=== PATIENT | female | born 1980 | race Caucasian/White ===

== ENCOUNTER 2017-09-20 12:33 | Inpatient (IN) | payer OTHER ==
[2017-09-20 13:53] LABS: ADD MAN DIFF? NO
[2017-09-20 13:54] LABS: BASOPHILS % 0.2 % (0.0-2.0); HEMATOCRIT 28.5 % (37.0-47.0); HEMOGLOBIN 9.4 g/dl (12.0-16.0); LYMPHOCYTES # 1.4 10^3/ul (0.8-2.9); LYMPHOCYTES % 6.3 % (15.0-51.0); MEAN CORPUSCULAR HEMOGLOBIN 27.6 pg (29.0-33.0); MEAN CORPUSCULAR VOLUME 83.8 fl (82.0-101.0); MEAN PLATELET VOLUME 11.6 fl (7.4-10.4); MONOCYTE # 0.9 10^3/ul (0.3-0.9); MONOCYTES % 3.8 % (0.0-11.0); PLATELET COUNT 350 10^3/UL (140-415); RED CELL DISTRIBUTION WIDTH 12.7 % (11.5-14.5)
[2017-09-20 13:54] LABS: WHITE BLOOD COUNT 22.4 10^3/ul (4.8-10.8)
[2017-09-20] MEDS ORDERED: ONDANSETRON 4 MG INJ IV (14:00)
[2017-09-20] MEDS ORDERED: ACETAMINOPHEN 325 MG TAB PO (14:00)
[2017-09-20 14:09] LABS: INR 0.82; PROTIME 11.4 Sec (11.9-14.9); PT RATIO 0.9
[2017-09-20 14:10] LABS: PARTIAL THROMBOPLASTIN TIME 25.6 Sec (25.0-35.0)
[2017-09-20 14:12] LABS: ALANINE AMINOTRANSFERASE 32 IU/L (13-69); ALBUMIN 2.9 g/dl (3.3-4.9); ALKALINE PHOSPHATASE 135 IU/L (42-121); ANION GAP 15 (8-16); ASPARTATE AMINO TRANSFERASE 15 IU/L (15-46); BILIRUBIN,INDIRECT 0.2 mg/dl (0-1.1); BILIRUBIN,TOTAL 0.2 mg/dl (0.2-1.3); BLOOD UREA NITROGEN 21 mg/dl (7-20); CALCIUM 7.6 mg/dl (8.4-10.2); CARBON DIOXIDE 24 mmol/L (21-31); CHLORIDE 94 mmol/L (97-110); CREATININE 1.43 mg/dl (0.44-1.00); POTASSIUM 4.1 mmol/L (3.5-5.1); SODIUM 129 mmol/L (135-144); TOTAL PROTEIN 6.1 g/dl (6.1-8.1)
[2017-09-20 14:16] LABS: GLUCOSE 537 mg/dl (70-220)
[2017-09-20] MEDS: SOD CHLORIDE 0.9% 1,000 ML IV (14:21)
[2017-09-20 14:23] LABS: TROPONIN-I 0.024 ng/ml (0.00-0.12)
[2017-09-20 14:30] LABS: LACTIC ACID 1.1 mmol/L (0.5-2.0)
[2017-09-20] MEDS ORDERED: VANCOMYCIN IV PER PHARMACY XX (14:30)
[2017-09-20] MEDS ORDERED: DOCUSATE SODIUM 100 MG CAP PO (14:30)
[2017-09-20] MEDS ORDERED: NACL 0.9% 3 ML SYG IV (14:30)
[2017-09-20] MEDS: SODIUM CHLORIDE 0.9% 1L BAG IV* (14:32)
[2017-09-20] MEDS: ACETAMINOPHEN 325 MG TAB PO (14:33)
[2017-09-20] MEDS: VANCOMYCIN 1 GM (PMX) 250 ML IVPB (14:33)
[2017-09-20 14:37] LABS: ADD UMIC YES; UR ASCORBIC ACID NEGATIVE (NEGATIVE); UR BILIRUBIN (Dip) NEGATIVE (NEGATIVE); UR BLOOD (Dip) 1+ mg/dL (NEGATIVE); UR CLARITY SLIGHTLY CLOUDY (CLEAR); UR COLOR YELLOW (YELLOW); UR GLUCOSE (Dip) 3+ mg/dL (NEGATIVE); UR KETONES (Dip) TRACE mg/dL (NEGATIVE); UR LEUKOCYTE ESTERASE (Dip) NEGATIVE Leu/ul (NEGATIVE); UR NITRITE (Dip) NEGATIVE (NEGATIVE); UR RBC 1 /HPF (0-5); UR SPECIFIC GRAVITY (Dip) 1.014 (1.003-1.030); UR SQUAMOUS EPITHELIAL CELL FEW /HPF (FEW); UR TOTAL PROTEIN (Dip) 3+ mg/dl (NEGATIVE); UR UROBILINOGEN (Dip) NEGATIVE (NEGATIVE); UR WBC 2 /HPF (0-5)
[2017-09-20] MEDS ORDERED: SOD CHLORIDE 0.9% 1,000 ML IV (14:40)
[2017-09-20] MEDS: AZTREONAM 1 GM/NS (PMX) 50 ML IVPB (14:54)
[2017-09-20] MEDS ORDERED: DEXTROSE 50% 50 ML SYRINGE IV ×2 (15:00)
[2017-09-20] MEDS ORDERED: ACCU-CHEK XX (15:00)
[2017-09-20] MEDS ORDERED: GLUCOSE GEL 15 GRAM TUBE PO (15:00)
[2017-09-20] MEDS ORDERED: GLUCAGON 1 MG INJ IM (15:00)
[2017-09-20] MEDS ORDERED: GLUCOSE GEL 15 GRAM TUBE BUCCAL (15:00)
[2017-09-20] MEDS ORDERED: INSULIN HUMAN REGULAR 100 UNIT in SOD CHLORIDE 0.9% 99 ML IV (15:00)
[2017-09-20] MEDS: morphine 4 MG/ML VIAL IV (15:29)
[2017-09-20] MEDS: ONDANSETRON 4 MG INJ IV (15:29)
[2017-09-20] MEDS: INSULIN LISPRO 100 UNIT/ML VIAL SC (15:34)
[2017-09-20] MEDS ORDERED: LACTATED RINGER'S 1,000 ML IV (15:40)
[2017-09-20 15:53] LABS: TOTAL IRON BINDING CAPACITY 189 ug/dl (241-421)
[2017-09-20 15:55] LABS: IRON < 10 ug/dl (35-150)
[2017-09-20] MEDS: NICOTINE (7 MG/24 HR) PATCH TRANSDERM (16:00)
[2017-09-20] MEDS ORDERED: LEVOFLOXACIN 500 MG TAB PO (16:00)
[2017-09-20] MEDS ORDERED: NS + KCL 20 MEQ 1,000 ML IV (16:40)
[2017-09-20 17:09] LABS: FERRITIN 28.9 ng/ml (6.2-137.0)
[2017-09-20 17:45] LABS: LACTIC ACID 2.6 mmol/L (0.5-2.0)
[2017-09-20] MEDS: INSULIN ASPART [NOVOLOG] 3 ML PEN SC ×2 (17:58→20:52)
[2017-09-20] MEDS: morphine 2 MG INJ IV (18:17)
[2017-09-20] MEDS: DIPHENHYDRAMINE 50 MG INJ IV (18:17)
[2017-09-20] MEDS: LEVOFLOXACIN 500MG/D5W (PMX) 100 ML IVPB (18:17)
[2017-09-20 19:52] LABS: LACTIC ACID 1.9 mmol/L (0.5-2.0)
[2017-09-20] MEDS: FAMOTIDINE 20 MG TAB PO (20:17)
[2017-09-20] MEDS: CHLORHEXIDINE GLUCONATE 15 ML UD CUP MT (20:17)
[2017-09-20] MEDS: GABAPENTIN 300 MG CAP PO (20:17)
[2017-09-20] MEDS: INSULIN GLARGINE [LANtus] 3 ML PEN SC (20:19)
[2017-09-20] MEDS: morphine (ER) 15 MG TAB PO ×2 (20:53→23:42)
[2017-09-20] MEDS ORDERED: CLINDAMYCIN 900 MG/D5W (PMX) 50 ML IVPB (22:00)
[2017-09-21] MEDS: ACCU-CHEK XX (02:00)
[2017-09-21 03:21] LABS: ADD UMIC YES; UR AMORPHOUS CRYSTAL FEW /HPF (NONE SEEN); UR ASCORBIC ACID NEGATIVE (NEGATIVE); UR BACTERIA FEW /HPF (NONE SEEN); UR BILIRUBIN (Dip) NEGATIVE (NEGATIVE); UR BLOOD (Dip) 1+ mg/dL (NEGATIVE); UR CLARITY CLEAR (CLEAR); UR COLOR STRAW (YELLOW); UR GLUCOSE (Dip) 3+ mg/dL (NEGATIVE); UR KETONES (Dip) NEGATIVE (NEGATIVE); UR LEUKOCYTE ESTERASE (Dip) NEGATIVE Leu/ul (NEGATIVE); UR NITRITE (Dip) NEGATIVE (NEGATIVE); UR RBC 10 /HPF (0-5); UR SPECIFIC GRAVITY (Dip) 1.009 (1.003-1.030); UR SQUAMOUS EPITHELIAL CELL FEW /HPF (FEW); UR TOTAL PROTEIN (Dip) 3+ mg/dl (NEGATIVE); UR UROBILINOGEN (Dip) NEGATIVE (NEGATIVE); UR WBC 2 /HPF (0-5)
[2017-09-21] MEDS: SOD CHLORIDE 0.9% 1,000 ML IV ×2 (04:45→10:13)
[2017-09-21 06:14] LABS: ADD MAN DIFF? NO
[2017-09-21 06:19] LABS: BASOPHILS % 0.2 % (0.0-2.0); EOSINOPHILS # 0.2 10^3/ul (0.0-0.5); EOSINOPHILS % 1.1 % (0.0-7.0); HEMATOCRIT 24.7 % (37.0-47.0); HEMOGLOBIN 8.2 g/dl (12.0-16.0); LYMPHOCYTES # 2.5 10^3/ul (0.8-2.9); LYMPHOCYTES % 17.1 % (15.0-51.0); MEAN CORPUSCULAR HEMOGLOBIN 28.1 pg (29.0-33.0); MEAN CORPUSCULAR HGB CONC 33.2 g/dl (32.0-37.0); MEAN CORPUSCULAR VOLUME 84.6 fl (82.0-101.0); MEAN PLATELET VOLUME 11.2 fl (7.4-10.4); MONOCYTE # 0.8 10^3/ul (0.3-0.9); MONOCYTES % 5.5 % (0.0-11.0); NEUTROPHIL # 11.3 10^3/ul (1.6-7.5); NEUTROPHILS % 75.8 % (39.0-77.0); PLATELET COUNT 326 10^3/UL (140-415); RED BLOOD COUNT 2.92 10^6/ul (4.20-5.40); RED CELL DISTRIBUTION WIDTH 12.9 % (11.5-14.5)
[2017-09-21 06:19] LABS: WHITE BLOOD COUNT 14.8 10^3/ul (4.8-10.8)
[2017-09-21 06:47] LABS: ALBUMIN 2.3 g/dl (3.3-4.9); ANION GAP 8 (8-16); BLOOD UREA NITROGEN 20 mg/dl (7-20); CALCIUM 7.8 mg/dl (8.4-10.2); CARBON DIOXIDE 25 mmol/L (21-31); CHLORIDE 104 mmol/L (97-110); CREATININE 1.47 mg/dl (0.44-1.00); GLUCOSE 194 mg/dl (70-220); MAGNESIUM 1.9 mg/dl (1.7-2.5); PHOSPHORUS 4.5 mg/dl (2.5-4.9); POTASSIUM 3.6 mmol/L (3.5-5.1); SODIUM 133 mmol/L (135-144)
[2017-09-21] MEDS: CHLORHEXIDINE GLUCONATE 15 ML UD CUP MT ×2 (08:05→21:03)
[2017-09-21] MEDS: NICOTINE (7 MG/24 HR) PATCH TRANSDERM (08:06)
[2017-09-21] MEDS: CITALOPRAM 20 MG TAB PO (08:06)
[2017-09-21] MEDS: GABAPENTIN 300 MG CAP PO ×2 (08:06→21:03)
[2017-09-21] MEDS: FAMOTIDINE 20 MG TAB PO ×2 (08:06→21:03)
[2017-09-21] MEDS: INSULIN ASPART [NOVOLOG] 3 ML PEN SC ×5 (08:10→21:19)
[2017-09-21] MEDS: morphine (ER) 15 MG TAB PO (08:13)
[2017-09-21] MEDS: morphine 2 MG INJ IV ×3 (09:00→21:38)
[2017-09-21] MEDS: POTASSIUM CHLORIDE (SR) 20 MEQ TAB PO (10:12)
[2017-09-21] MEDS ORDERED: FUROSEMIDE 20 MG TAB PO (11:00)
[2017-09-21] MEDS: VANCOMYCIN 750 MG in DEXTROSE 5% 150 ML IVPB (15:59)
[2017-09-21] MEDS: DIPHENHYDRAMINE 50 MG INJ IV (16:04)
[2017-09-21] MEDS: LEVOFLOXACIN 500MG/D5W (PMX) 100 ML IVPB (18:21)
[2017-09-21] MEDS: INSULIN GLARGINE [LANtus] 3 ML PEN SC (21:20)
[2017-09-22] MEDS: ACCU-CHEK XX (01:40)
[2017-09-22] MEDS: SOD CHLORIDE 0.9% 1,000 ML IV ×4 (03:20→22:00)
[2017-09-22 06:10] LABS: ADD MAN DIFF? NO
[2017-09-22 06:14] LABS: BASOPHILS % 0.1 % (0.0-2.0); EOSINOPHILS # 0.2 10^3/ul (0.0-0.5); EOSINOPHILS % 1.2 % (0.0-7.0); HEMATOCRIT 25.1 % (37.0-47.0); HEMOGLOBIN 7.7 g/dl (12.0-16.0); LYMPHOCYTES # 2.1 10^3/ul (0.8-2.9); LYMPHOCYTES % 15.7 % (15.0-51.0); MEAN CORPUSCULAR HEMOGLOBIN 27.5 pg (29.0-33.0); MEAN CORPUSCULAR HGB CONC 30.7 g/dl (32.0-37.0); MEAN CORPUSCULAR VOLUME 89.6 fl (82.0-101.0); MEAN PLATELET VOLUME 11.3 fl (7.4-10.4); MONOCYTE # 0.7 10^3/ul (0.3-0.9); MONOCYTES % 5.3 % (0.0-11.0); NEUTROPHIL # 10.5 10^3/ul (1.6-7.5); NEUTROPHILS % 77.3 % (39.0-77.0); PLATELET COUNT 334 10^3/UL (140-415); RED CELL DISTRIBUTION WIDTH 13.4 % (11.5-14.5)
[2017-09-22 06:14] LABS: WHITE BLOOD COUNT 13.6 10^3/ul (4.8-10.8)
[2017-09-22 07:01] LABS: ALBUMIN 2.2 g/dl (3.3-4.9); ANION GAP 11 (8-16); BLOOD UREA NITROGEN 17 mg/dl (7-20); CALCIUM 7.3 mg/dl (8.4-10.2); CARBON DIOXIDE 24 mmol/L (21-31); CHLORIDE 109 mmol/L (97-110); CREATININE 1.67 mg/dl (0.44-1.00); GLUCOSE 235 mg/dl (70-220); MAGNESIUM 1.9 mg/dl (1.7-2.5); PHOSPHORUS 4.3 mg/dl (2.5-4.9); SODIUM 138 mmol/L (135-144)
[2017-09-22 07:11] LABS: POTASSIUM 5.6 mmol/L (3.5-5.1)
[2017-09-22] MEDS: GABAPENTIN 300 MG CAP PO ×2 (09:05→20:54)
[2017-09-22] MEDS: CITALOPRAM 20 MG TAB PO (09:05)
[2017-09-22] MEDS: FAMOTIDINE 20 MG TAB PO ×2 (09:05→20:54)
[2017-09-22] MEDS: CHLORHEXIDINE GLUCONATE 15 ML UD CUP MT ×2 (09:05→20:54)
[2017-09-22] MEDS: NICOTINE (7 MG/24 HR) PATCH TRANSDERM (09:06)
[2017-09-22] MEDS: INSULIN ASPART [NOVOLOG] 3 ML PEN SC ×6 (09:07→20:53)
[2017-09-22] MEDS: morphine 2 MG INJ IV ×4 (09:18→16:57)
[2017-09-22 10:57] LABS: HAAIG REFLEX REFLEX FILED
[2017-09-22 11:27] LABS: ALBUMIN 2.4 g/dl (3.3-4.9); ANION GAP 11 (8-16); BLOOD UREA NITROGEN 17 mg/dl (7-20); CALCIUM 7.7 mg/dl (8.4-10.2); CARBON DIOXIDE 21 mmol/L (21-31); CHLORIDE 107 mmol/L (97-110); CREATININE 1.63 mg/dl (0.44-1.00); GLUCOSE 290 mg/dl (70-220); PHOSPHORUS 4.4 mg/dl (2.5-4.9); POTASSIUM 4.8 mmol/L (3.5-5.1); SODIUM 134 mmol/L (135-144)
[2017-09-22 11:55] LABS: HEPATITIS B SURFACE ANTIGEN NEGATIVE (NEGATIVE)
[2017-09-22] MEDS ORDERED: VITAMIN A & D 5 GM OINT PACKET TOP (12:00)
[2017-09-22 12:13] LABS: HEPATITIS B CORE ANTIBODY NEGATIVE (NEGATIVE); HEPATITIS C VIRAL ANTIBODY NEGATIVE (NEGATIVE)
[2017-09-22 13:16] LABS: ADD UMIC YES; UR AMORPHOUS CRYSTAL FEW /HPF (NONE SEEN); UR ASCORBIC ACID NEGATIVE (NEGATIVE); UR BACTERIA FEW /HPF (NONE SEEN); UR BILIRUBIN (Dip) NEGATIVE (NEGATIVE); UR BLOOD (Dip) 1+ mg/dL (NEGATIVE); UR CLARITY CLOUDY (CLEAR); UR COLOR YELLOW (YELLOW); UR GLUCOSE (Dip) 3+ mg/dL (NEGATIVE); UR KETONES (Dip) NEGATIVE (NEGATIVE); UR LEUKOCYTE ESTERASE (Dip) NEGATIVE Leu/ul (NEGATIVE); UR MUCUS FEW /HPF (NONE SEEN); UR NITRITE (Dip) NEGATIVE (NEGATIVE); UR RBC 0 /HPF (0-5); UR SPECIFIC GRAVITY (Dip) 1.012 (1.003-1.030); UR SQUAMOUS EPITHELIAL CELL FEW /HPF (FEW); UR TOTAL PROTEIN (Dip) 3+ mg/dl (NEGATIVE); UR UROBILINOGEN (Dip) NEGATIVE (NEGATIVE); UR WBC 7 /HPF (0-5)
[2017-09-22 14:44] LABS: SODIUM,URINE RANDOM 32 mmol/L (30-90)
[2017-09-22 14:44] LABS: CREATININE,URINE RANDOM 79.57 mg/dl (20-320)
[2017-09-22] MEDS: VANCOMYCIN 750 MG in DEXTROSE 5% 150 ML IVPB (16:28)
[2017-09-22] MEDS: LEVOFLOXACIN 250MG/D5W (PMX) 50 ML IVPB (19:39)
[2017-09-22] MEDS: INSULIN GLARGINE [LANtus] 3 ML PEN SC (20:54)
[2017-09-22] MEDS: LORAZEPAM 2 MG INJ IV (21:01)
[2017-09-23] MEDS: morphine 2 MG INJ IV ×4 (01:21→20:31)
[2017-09-23] MEDS: ACCU-CHEK XX (01:23)
[2017-09-23 06:21] LABS: ADD MAN DIFF? NO
[2017-09-23 06:29] LABS: WHITE BLOOD COUNT 10.1 10^3/ul (4.8-10.8)
[2017-09-23 06:29] LABS: BASOPHILS % 0.1 % (0.0-2.0); EOSINOPHILS # 0.1 10^3/ul (0.0-0.5); EOSINOPHILS % 1.4 % (0.0-7.0); HEMATOCRIT 24.5 % (37.0-47.0); HEMOGLOBIN 7.7 g/dl (12.0-16.0); LYMPHOCYTES # 2.5 10^3/ul (0.8-2.9); LYMPHOCYTES % 24.7 % (15.0-51.0); MEAN CORPUSCULAR HEMOGLOBIN 27.8 pg (29.0-33.0); MEAN CORPUSCULAR HGB CONC 31.4 g/dl (32.0-37.0); MEAN CORPUSCULAR VOLUME 88.4 fl (82.0-101.0); MEAN PLATELET VOLUME 10.6 fl (7.4-10.4); MONOCYTE # 0.6 10^3/ul (0.3-0.9); MONOCYTES % 6.2 % (0.0-11.0); NEUTROPHIL # 6.8 10^3/ul (1.6-7.5); NEUTROPHILS % 67.2 % (39.0-77.0); PLATELET COUNT 336 10^3/UL (140-415); RED BLOOD COUNT 2.77 10^6/ul (4.20-5.40); RED CELL DISTRIBUTION WIDTH 13.2 % (11.5-14.5)
[2017-09-23] MEDS ORDERED: morphine (1 MG/ML) 10ML SYRINGE IV ×3 (07:00)
[2017-09-23] MEDS ORDERED: LABETALOL HCL 20MG INJ IV (07:00)
[2017-09-23] MEDS ORDERED: MEPERIDINE 25 MG INJ IV (07:00)
[2017-09-23] MEDS ORDERED: OXYCODONE/ACETAMINOPHEN (5/325) TAB PO ×2 (07:00)
[2017-09-23] MEDS ORDERED: EPHEDrine SULFATE 50 MG/5 ML SYG IV (07:00)
[2017-09-23] MEDS ORDERED: MIDAZOLAM 1 MG/ML 2 ML INJ IV (07:00)
[2017-09-23] MEDS ORDERED: HYDROmorphONE (0.2 MG/ML) 10ML SYG IV ×3 (07:00)
[2017-09-23] MEDS ORDERED: ATROPINE 1 MG/10 ML SYRINGE IV (07:00)
[2017-09-23] MEDS ORDERED: ONDANSETRON 4 MG INJ IV (07:00)
[2017-09-23] MEDS ORDERED: FENTAnyl 50 MCG/ML VIAL IV (07:00)
[2017-09-23] MEDS ORDERED: hydrALAzine 20 MG INJ IV (07:00)
[2017-09-23] MEDS ORDERED: DIPHENHYDRAMINE 50 MG INJ IV (07:00)
[2017-09-23 07:01] LABS: ALBUMIN 2.2 g/dl (3.3-4.9); ANION GAP 8 (8-16); BLOOD UREA NITROGEN 19 mg/dl (7-20); CALCIUM 7.6 mg/dl (8.4-10.2); CARBON DIOXIDE 24 mmol/L (21-31); CHLORIDE 108 mmol/L (97-110); CREATININE 1.46 mg/dl (0.44-1.00); GLUCOSE 242 mg/dl (70-220); MAGNESIUM 1.8 mg/dl (1.7-2.5); PHOSPHORUS 4.3 mg/dl (2.5-4.9); POTASSIUM 5.1 mmol/L (3.5-5.1); SODIUM 135 mmol/L (135-144)
[2017-09-23] MEDS: INSULIN ASPART [NOVOLOG] 3 ML PEN SC ×9 (08:06→20:33)
[2017-09-23] MEDS: LORAZEPAM 2 MG INJ IV ×2 (08:46→21:06)
[2017-09-23] MEDS: GABAPENTIN 300 MG CAP PO ×2 (09:00→20:18)
[2017-09-23] MEDS: CHLORHEXIDINE GLUCONATE 15 ML UD CUP MT ×2 (09:00→20:17)
[2017-09-23] MEDS: FAMOTIDINE 20 MG TAB PO ×2 (09:00→20:18)
[2017-09-23] MEDS: CITALOPRAM 20 MG TAB PO (09:00)
[2017-09-23] MEDS: NICOTINE (7 MG/24 HR) PATCH TRANSDERM (09:12)
[2017-09-23] MEDS ORDERED: LIDOCAINE 2% (SDV) 5 ML INJ (10:21)
[2017-09-23] MEDS ORDERED: NEOSTIGMINE 3 MG/3 ML SYRINGE (10:21)
[2017-09-23] MEDS ORDERED: MIDAZOLAM 1 MG/ML 2 ML INJ (10:21)
[2017-09-23] MEDS ORDERED: FENTAnyl 50 MCG/ML VIAL (10:21)
[2017-09-23] MEDS ORDERED: GLYCOPYRROLATE 1 MG INJ (10:21)
[2017-09-23] MEDS ORDERED: DEXAMETHASONE 4 MG/ML 1 ML INJ (10:21)
[2017-09-23] MEDS ORDERED: ROCURONIUM 50 MG INJ (10:21)
[2017-09-23] MEDS ORDERED: PROPOFOL 20 ML (10:21)
[2017-09-23] MEDS ORDERED: ONDANSETRON 4 MG INJ (10:22)
[2017-09-23] MEDS: DEXTROSE 50% 50 ML SYRINGE IV (10:36)
[2017-09-23] MEDS ORDERED: DEXTROSE 50% 50 ML SYRINGE IV (11:00)
[2017-09-23] MEDS: SOD CHLORIDE 0.9% 1,000 ML IV (11:01)
[2017-09-23] MEDS: LIDOCAINE 2% (MDV) 20 ML INJ (11:25)
[2017-09-23] MEDS: BACITRACIN 50000 UNITS INJ (12:30)
[2017-09-23 15:22] LABS: VANCOMYCIN,TROUGH 14.1 ug/ml (10.0-20.0)
[2017-09-23 16:31] LABS: CREATININE, RANDOM URINE 97 mg/dL (20-320); MICROALBUMIN 189.2 mg/dL; MICROALBUMIN/CREATININE RATIO 1951 (<30)
[2017-09-23] MEDS: VANCOMYCIN 750 MG in DEXTROSE 5% 150 ML IVPB (16:34)
[2017-09-23] MEDS: CEFEPIME 1GM/50 ML (PMX) 50 ML IVPB (18:42)
[2017-09-23] MEDS: INSULIN GLARGINE [LANtus] 3 ML PEN SC (20:24)
[2017-09-24] MEDS: CEFEPIME 1GM/50 ML (PMX) 50 ML IVPB ×3 (00:42→20:44)
[2017-09-24] MEDS: SOD CHLORIDE 0.9% 1,000 ML IV (00:42)
[2017-09-24] MEDS: ACCU-CHEK XX (02:13)
[2017-09-24] MEDS: morphine 2 MG INJ IV ×5 (02:27→21:36)
[2017-09-24 06:14] LABS: ADD MAN DIFF? NO
[2017-09-24 06:22] LABS: BASOPHILS % 0.2 % (0.0-2.0); EOSINOPHILS % 0.2 % (0.0-7.0); HEMATOCRIT 26.5 % (37.0-47.0); HEMOGLOBIN 8.3 g/dl (12.0-16.0); LYMPHOCYTES # 1.8 10^3/ul (0.8-2.9); LYMPHOCYTES % 14.5 % (15.0-51.0); MEAN CORPUSCULAR HEMOGLOBIN 27.1 pg (29.0-33.0); MEAN CORPUSCULAR HGB CONC 31.3 g/dl (32.0-37.0); MEAN CORPUSCULAR VOLUME 86.6 fl (82.0-101.0); MEAN PLATELET VOLUME 10.3 fl (7.4-10.4); MONOCYTE # 0.6 10^3/ul (0.3-0.9); NEUTROPHIL # 10.1 10^3/ul (1.6-7.5); NEUTROPHILS % 79.5 % (39.0-77.0); PLATELET COUNT 413 10^3/UL (140-415); RED BLOOD COUNT 3.06 10^6/ul (4.20-5.40)
[2017-09-24 06:22] LABS: WHITE BLOOD COUNT 12.7 10^3/ul (4.8-10.8)
[2017-09-24 06:58] LABS: ANION GAP 11 (8-16); BLOOD UREA NITROGEN 22 mg/dl (7-20); CALCIUM 8.2 mg/dl (8.4-10.2); CARBON DIOXIDE 22 mmol/L (21-31); CHLORIDE 104 mmol/L (97-110); CREATININE 1.24 mg/dl (0.44-1.00); MAGNESIUM 1.8 mg/dl (1.7-2.5); POTASSIUM 5.1 mmol/L (3.5-5.1); SODIUM 132 mmol/L (135-144)
[2017-09-24 07:09] LABS: GLUCOSE 404 mg/dl (70-220)
[2017-09-24] MEDS: INSULIN ASPART [NOVOLOG] 3 ML PEN SC ×8 (07:54→20:53)
[2017-09-24] MEDS: CITALOPRAM 20 MG TAB PO (08:23)
[2017-09-24] MEDS: FAMOTIDINE 20 MG TAB PO ×2 (08:23→20:45)
[2017-09-24] MEDS: MAGNESIUM HYDROXIDE 30ML CUP PO (08:23)
[2017-09-24] MEDS: GABAPENTIN 300 MG CAP PO ×2 (08:23→20:46)
[2017-09-24] MEDS: CHLORHEXIDINE GLUCONATE 15 ML UD CUP MT ×2 (08:23→20:45)
[2017-09-24] MEDS: NICOTINE (7 MG/24 HR) PATCH TRANSDERM (09:22)
[2017-09-24] MEDS: VANCOMYCIN 750 MG in DEXTROSE 5% 150 ML IVPB (16:25)
[2017-09-24] MEDS: INSULIN GLARGINE [LANtus] 3 ML PEN SC (20:51)
[2017-09-25] MEDS: ACCU-CHEK XX (02:00)
[2017-09-25] MEDS: morphine 2 MG INJ IV ×4 (03:21→18:12)
[2017-09-25 06:26] LABS: ADD MAN DIFF? NO
[2017-09-25 06:46] LABS: WHITE BLOOD COUNT 10.2 10^3/ul (4.8-10.8)
[2017-09-25 06:46] LABS: BASOPHILS % 0.2 % (0.0-2.0); EOSINOPHILS # 0.2 10^3/ul (0.0-0.5); EOSINOPHILS % 1.9 % (0.0-7.0); HEMATOCRIT 25.6 % (37.0-47.0); HEMOGLOBIN 8.1 g/dl (12.0-16.0); LYMPHOCYTES # 3.2 10^3/ul (0.8-2.9); LYMPHOCYTES % 31.8 % (15.0-51.0); MEAN CORPUSCULAR HEMOGLOBIN 27.7 pg (29.0-33.0); MEAN CORPUSCULAR HGB CONC 31.6 g/dl (32.0-37.0); MEAN CORPUSCULAR VOLUME 87.7 fl (82.0-101.0); MEAN PLATELET VOLUME 10.3 fl (7.4-10.4); MONOCYTE # 0.7 10^3/ul (0.3-0.9); MONOCYTES % 6.5 % (0.0-11.0); NEUTROPHIL # 6.1 10^3/ul (1.6-7.5); NEUTROPHILS % 59.2 % (39.0-77.0); PLATELET COUNT 394 10^3/UL (140-415); RED BLOOD COUNT 2.92 10^6/ul (4.20-5.40); RED CELL DISTRIBUTION WIDTH 13.2 % (11.5-14.5)
[2017-09-25 07:13] LABS: ANION GAP 11 (8-16); BLOOD UREA NITROGEN 24 mg/dl (7-20); CALCIUM 7.7 mg/dl (8.4-10.2); CARBON DIOXIDE 23 mmol/L (21-31); CHLORIDE 109 mmol/L (97-110); CREATININE 1.25 mg/dl (0.44-1.00); GLUCOSE 154 mg/dl (70-220); MAGNESIUM 1.9 mg/dl (1.7-2.5); POTASSIUM 5.3 mmol/L (3.5-5.1); SODIUM 138 mmol/L (135-144)
[2017-09-25] MEDS: FAMOTIDINE 20 MG TAB PO ×2 (09:16→20:41)
[2017-09-25] MEDS: CITALOPRAM 20 MG TAB PO (09:16)
[2017-09-25] MEDS: CHLORHEXIDINE GLUCONATE 15 ML UD CUP MT ×2 (09:16→20:41)
[2017-09-25] MEDS: GABAPENTIN 300 MG CAP PO ×2 (09:16→20:41)
[2017-09-25] MEDS: NICOTINE (7 MG/24 HR) PATCH TRANSDERM (09:17)
[2017-09-25] MEDS: CEFEPIME 1GM/50 ML (PMX) 50 ML IVPB ×2 (09:17→20:41)
[2017-09-25] MEDS: INSULIN ASPART [NOVOLOG] 3 ML PEN SC ×7 (09:19→20:49)
[2017-09-25 15:03] LABS: TROPONIN-I 0.016 ng/ml (0.00-0.12)
[2017-09-25] MEDS: VANCOMYCIN 750 MG in DEXTROSE 5% 150 ML IVPB (16:06)
[2017-09-25] MEDS: INSULIN GLARGINE [LANtus] 3 ML PEN SC (20:50)
[2017-09-26] MEDS: SOD CHLORIDE 0.45% 1,000 ML IV ×2 (02:00→16:40)
[2017-09-26] MEDS: ACCU-CHEK XX (02:00)
[2017-09-26] MEDS: DEXTROSE 50% 50 ML SYRINGE IV (02:11)
[2017-09-26 07:23] LABS: ANION GAP 8 (8-16); BLOOD UREA NITROGEN 27 mg/dl (7-20); CALCIUM 8.1 mg/dl (8.4-10.2); CARBON DIOXIDE 26 mmol/L (21-31); CHLORIDE 108 mmol/L (97-110); CREATININE 1.36 mg/dl (0.44-1.00); GLUCOSE 84 mg/dl (70-220); MAGNESIUM 1.9 mg/dl (1.7-2.5); PHOSPHORUS 5.1 mg/dl (2.5-4.9); SODIUM 137 mmol/L (135-144)
[2017-09-26 07:27] LABS: ADD MAN DIFF? NO
[2017-09-26 07:34] LABS: WHITE BLOOD COUNT 10.2 10^3/ul (4.8-10.8)
[2017-09-26 07:34] LABS: BASOPHILS % 0.2 % (0.0-2.0); EOSINOPHILS # 0.2 10^3/ul (0.0-0.5); EOSINOPHILS % 1.8 % (0.0-7.0); HEMATOCRIT 26.4 % (37.0-47.0); LYMPHOCYTES # 2.9 10^3/ul (0.8-2.9); LYMPHOCYTES % 28.9 % (15.0-51.0); MEAN CORPUSCULAR HEMOGLOBIN 27.6 pg (29.0-33.0); MEAN CORPUSCULAR HGB CONC 30.3 g/dl (32.0-37.0); MEAN PLATELET VOLUME 10.3 fl (7.4-10.4); MONOCYTE # 0.8 10^3/ul (0.3-0.9); MONOCYTES % 7.5 % (0.0-11.0); NEUTROPHIL # 6.2 10^3/ul (1.6-7.5); NEUTROPHILS % 60.8 % (39.0-77.0); PLATELET COUNT 396 10^3/UL (140-415); RED CELL DISTRIBUTION WIDTH 13.2 % (11.5-14.5)
[2017-09-26] MEDS ORDERED: MIDAZOLAM 1 MG/ML 2 ML INJ (08:10)
[2017-09-26] MEDS ORDERED: PROPOFOL 20 ML (08:10)
[2017-09-26] MEDS ORDERED: ROPIVACAINE 0.5 % 30 ML VIAL (08:10)
[2017-09-26] MEDS ORDERED: FENTAnyl 50 MCG/ML VIAL (08:10)
[2017-09-26] MEDS: INSULIN ASPART [NOVOLOG] 3 ML PEN SC ×7 (08:15→20:14)
[2017-09-26] MEDS ORDERED: METOCLOPRAMIDE 10 MG INJ (08:27)
[2017-09-26] MEDS ORDERED: DEXAMETHASONE 4 MG/ML 1 ML INJ (08:27)
[2017-09-26] MEDS ORDERED: ONDANSETRON 4 MG INJ (08:27)
[2017-09-26] MEDS ORDERED: PHENYLephrine (100 MCG/ML) 5ML SYG (08:27)
[2017-09-26] MEDS ORDERED: KETOROLAC 30 MG INJ (08:28)
[2017-09-26] MEDS ORDERED: POLYMYXIN/BACITRACIN 1L IRRIG (08:35)
[2017-09-26] MEDS ORDERED: OXYCODONE/ACETAMINOPHEN (5/325) TAB PO (09:00)
[2017-09-26] MEDS: CITALOPRAM 20 MG TAB PO (09:00)
[2017-09-26] MEDS ORDERED: MEPERIDINE 25 MG INJ IV (09:00)
[2017-09-26] MEDS: NICOTINE (7 MG/24 HR) PATCH TRANSDERM (09:00)
[2017-09-26] MEDS: GABAPENTIN 300 MG CAP PO ×2 (09:00→20:17)
[2017-09-26] MEDS ORDERED: LABETALOL HCL 20MG INJ IV (09:00)
[2017-09-26] MEDS ORDERED: ONDANSETRON 4 MG INJ IV (09:00)
[2017-09-26] MEDS ORDERED: HYDROmorphONE (0.2 MG/ML) 10ML SYG IV ×3 (09:00)
[2017-09-26] MEDS ORDERED: FENTAnyl 50 MCG/ML VIAL IV ×3 (09:00)
[2017-09-26] MEDS ORDERED: METOCLOPRAMIDE 10 MG INJ IV (09:00)
[2017-09-26] MEDS: FAMOTIDINE 20 MG TAB PO ×2 (09:00→20:03)
[2017-09-26] MEDS ORDERED: DIPHENHYDRAMINE 50 MG INJ IV (09:00)
[2017-09-26] MEDS: CHLORHEXIDINE GLUCONATE 15 ML UD CUP MT ×2 (09:00→20:03)
[2017-09-26] MEDS ORDERED: EPHEDrine SULFATE 50 MG/5 ML SYG IV (09:00)
[2017-09-26] MEDS ORDERED: NALOXONE (0.4 MG/ML) INJ (09:52)
[2017-09-26] MEDS: CEFEPIME 1GM/50 ML (PMX) 50 ML IVPB ×2 (11:09→20:03)
[2017-09-26] MEDS: morphine 2 MG INJ IV ×3 (14:14→23:40)
[2017-09-26 15:32] LABS: VANCOMYCIN,TROUGH 16.7 ug/ml (10.0-20.0)
[2017-09-26] MEDS: ACETAMINOPHEN 325 MG TAB PO (16:20)
[2017-09-26] MEDS: VANCOMYCIN 750 MG in DEXTROSE 5% 150 ML IVPB (16:22)
[2017-09-26] MEDS: BISACODYL 10 MG SUPP PR (17:41)
[2017-09-26] MEDS: INSULIN GLARGINE [LANtus] 3 ML PEN SC (20:15)
[2017-09-27] MEDS: ACCU-CHEK XX (02:00)
[2017-09-27] MEDS: morphine 2 MG INJ IV ×4 (04:22→18:51)
[2017-09-27 06:20] LABS: BLOOD UREA NITROGEN 25 mg/dl (7-20)
[2017-09-27 06:20] LABS: CREATININE 1.15 mg/dl (0.44-1.00)
[2017-09-27] MEDS: GABAPENTIN 300 MG CAP PO ×2 (08:16→20:42)
[2017-09-27] MEDS: CITALOPRAM 20 MG TAB PO (08:16)
[2017-09-27] MEDS: FAMOTIDINE 20 MG TAB PO ×2 (08:16→20:42)
[2017-09-27] MEDS: NICOTINE (7 MG/24 HR) PATCH TRANSDERM (08:16)
[2017-09-27] MEDS: CEFEPIME 1GM/50 ML (PMX) 50 ML IVPB ×2 (08:16→20:42)
[2017-09-27] MEDS: INSULIN ASPART [NOVOLOG] 3 ML PEN SC ×7 (08:17→20:44)
[2017-09-27] MEDS: CHLORHEXIDINE GLUCONATE 15 ML UD CUP MT ×2 (08:17→20:42)
[2017-09-27] MEDS: SOD CHLORIDE 0.45% 1,000 ML IV (08:28)
[2017-09-27 16:02] LABS: TROPONIN-I < 0.012 ng/ml (0.00-0.12)
[2017-09-27] MEDS: VANCOMYCIN 750 MG in DEXTROSE 5% 150 ML IVPB (17:10)
[2017-09-27] MEDS: INSULIN GLARGINE [LANtus] 3 ML PEN SC (20:44)
[2017-09-28] MEDS: ACCU-CHEK XX (01:22)
[2017-09-28] MEDS: SOD CHLORIDE 0.45% 1,000 ML IV (02:00)
[2017-09-28 06:17] LABS: ADD MAN DIFF? NO
[2017-09-28 06:32] LABS: BASOPHILS % 0.3 % (0.0-2.0); EOSINOPHILS # 0.2 10^3/ul (0.0-0.5); EOSINOPHILS % 1.9 % (0.0-7.0); HEMATOCRIT 25.5 % (37.0-47.0); HEMOGLOBIN 7.7 g/dl (12.0-16.0); LYMPHOCYTES # 3.6 10^3/ul (0.8-2.9); LYMPHOCYTES % 34.5 % (15.0-51.0); MEAN CORPUSCULAR HEMOGLOBIN 27.4 pg (29.0-33.0); MEAN CORPUSCULAR HGB CONC 30.2 g/dl (32.0-37.0); MEAN CORPUSCULAR VOLUME 90.7 fl (82.0-101.0); MONOCYTE # 0.6 10^3/ul (0.3-0.9); MONOCYTES % 5.4 % (0.0-11.0); NEUTROPHILS % 56.5 % (39.0-77.0); PLATELET COUNT 398 10^3/UL (140-415); RED BLOOD COUNT 2.81 10^6/ul (4.20-5.40); RED CELL DISTRIBUTION WIDTH 13.2 % (11.5-14.5)
[2017-09-28 06:32] LABS: WHITE BLOOD COUNT 10.5 10^3/ul (4.8-10.8)
[2017-09-28 06:45] LABS: ANION GAP 9 (8-16); BLOOD UREA NITROGEN 32 mg/dl (7-20); CALCIUM 8.2 mg/dl (8.4-10.2); CARBON DIOXIDE 28 mmol/L (21-31); CHLORIDE 106 mmol/L (97-110); GLUCOSE 154 mg/dl (70-220); PHOSPHORUS 4.8 mg/dl (2.5-4.9); POTASSIUM 5.1 mmol/L (3.5-5.1); SODIUM 138 mmol/L (135-144)
[2017-09-28] MEDS: GABAPENTIN 300 MG CAP PO ×2 (08:26→20:21)
[2017-09-28] MEDS: FAMOTIDINE 20 MG TAB PO ×2 (08:26→20:22)
[2017-09-28] MEDS: CITALOPRAM 20 MG TAB PO (08:26)
[2017-09-28] MEDS: CHLORHEXIDINE GLUCONATE 15 ML UD CUP MT ×2 (08:26→23:46)
[2017-09-28] MEDS: NICOTINE (7 MG/24 HR) PATCH TRANSDERM (08:27)
[2017-09-28] MEDS: CEFEPIME 1GM/50 ML (PMX) 50 ML IVPB ×2 (08:27→20:22)
[2017-09-28] MEDS: INSULIN ASPART [NOVOLOG] 3 ML PEN SC ×7 (08:34→20:28)
[2017-09-28] MEDS: morphine 2 MG INJ IV ×3 (08:42→23:46)
[2017-09-28] MEDS: SOD CHLORIDE 0.9% 1,000 ML IV ×3 (09:17→20:31)
[2017-09-28] MEDS ORDERED: VANCOMYCIN 500MG/NS (PMX) 100 ML IVPB (16:00)
[2017-09-28] MEDS: LORAZEPAM 0.5 MG TAB PO (20:22)
[2017-09-28] MEDS: ZYVOX 600 MG TAB PO (20:22)
[2017-09-28] MEDS: ACETAMINOPHEN 325 MG TAB PO (20:37)
[2017-09-28] MEDS: INSULIN GLARGINE [LANtus] 3 ML PEN SC (23:55)
[2017-09-29] MEDS: ACCU-CHEK XX (02:00)
[2017-09-29] MEDS: SOD CHLORIDE 0.9% 1,000 ML IV (05:00)
[2017-09-29 07:02] LABS: ANION GAP 9 (8-16); BLOOD UREA NITROGEN 32 mg/dl (7-20); CALCIUM 8.1 mg/dl (8.4-10.2); CARBON DIOXIDE 26 mmol/L (21-31); CHLORIDE 108 mmol/L (97-110); CREATININE 1.37 mg/dl (0.44-1.00); GLUCOSE 163 mg/dl (70-220); MAGNESIUM 1.9 mg/dl (1.7-2.5); PHOSPHORUS 4.6 mg/dl (2.5-4.9); SODIUM 138 mmol/L (135-144)
[2017-09-29] MEDS: CHLORHEXIDINE GLUCONATE 15 ML UD CUP MT ×2 (07:57→20:14)
[2017-09-29] MEDS: CITALOPRAM 20 MG TAB PO (07:57)
[2017-09-29] MEDS: NICOTINE (7 MG/24 HR) PATCH TRANSDERM (07:57)
[2017-09-29] MEDS: ZYVOX 600 MG TAB PO ×2 (07:57→20:14)
[2017-09-29] MEDS: GABAPENTIN 300 MG CAP PO ×2 (07:57→20:14)
[2017-09-29] MEDS: FAMOTIDINE 20 MG TAB PO ×2 (07:57→20:14)
[2017-09-29] MEDS: CEFEPIME 1GM/50 ML (PMX) 50 ML IVPB ×2 (07:59→20:14)
[2017-09-29] MEDS: INSULIN ASPART [NOVOLOG] 3 ML PEN SC ×7 (08:11→21:00)
[2017-09-29] MEDS: morphine 2 MG INJ IV (15:49)
[2017-09-29] MEDS: INSULIN GLARGINE [LANtus] 3 ML PEN SC (20:17)
[2017-09-29] MEDS: HYDROmorphONE 1 MG/ML SYG IV (20:25)
[2017-09-30] MEDS: ACCU-CHEK XX (02:00)
[2017-09-30] MEDS: HYDROmorphONE 1 MG/ML SYG IV (03:21)
[2017-09-30 06:26] LABS: ANION GAP 7 (8-16); BLOOD UREA NITROGEN 31 mg/dl (7-20); CALCIUM 8.7 mg/dl (8.4-10.2); CARBON DIOXIDE 29 mmol/L (21-31); CHLORIDE 107 mmol/L (97-110); GLUCOSE 164 mg/dl (70-220); PHOSPHORUS 4.2 mg/dl (2.5-4.9); POTASSIUM 5.7 mmol/L (3.5-5.1); SODIUM 137 mmol/L (135-144)
[2017-09-30] MEDS ORDERED: EPOETIN ALFA (NESRD) 3,000 UNITS/ML VIAL SC (08:00)
[2017-09-30] MEDS: FAMOTIDINE 20 MG TAB PO ×2 (08:25→20:44)
[2017-09-30] MEDS: GABAPENTIN 300 MG CAP PO ×2 (08:25→20:44)
[2017-09-30] MEDS: CEFEPIME 1GM/50 ML (PMX) 50 ML IVPB ×2 (08:25→20:43)
[2017-09-30] MEDS: CITALOPRAM 20 MG TAB PO (08:25)
[2017-09-30] MEDS: CHLORHEXIDINE GLUCONATE 15 ML UD CUP MT ×2 (08:25→20:45)
[2017-09-30] MEDS: NICOTINE (7 MG/24 HR) PATCH TRANSDERM (08:26)
[2017-09-30] MEDS: INSULIN ASPART [NOVOLOG] 3 ML PEN SC ×7 (08:35→20:49)
[2017-09-30] MEDS: ZYVOX 600 MG TAB PO ×2 (08:35→20:45)
[2017-09-30 08:46] LABS: POTASSIUM 5.7 mmol/L (3.5-5.1)
[2017-09-30] MEDS: morphine 2 MG INJ IV ×3 (08:55→19:46)
[2017-09-30] MEDS: NA POLYST SULFON 15 GM/60 ML BTL PO (10:41)
[2017-09-30] MEDS: PERMETHRIN 1% 59 ML TOP (11:30)
[2017-09-30] MEDS: INSULIN GLARGINE [LANtus] 3 ML PEN SC (20:54)
[2017-09-30] MEDS: LORAZEPAM 0.5 MG TAB PO (21:30)
[2017-10-01] MEDS: ACCU-CHEK XX (02:00)
[2017-10-01 06:16] LABS: ADD MAN DIFF? NO
[2017-10-01 06:19] LABS: BASOPHILS % 0.3 % (0.0-2.0); EOSINOPHILS # 0.2 10^3/ul (0.0-0.5); HEMATOCRIT 24.5 % (37.0-47.0); HEMOGLOBIN 7.5 g/dl (12.0-16.0); LYMPHOCYTES % 31.3 % (15.0-51.0); MEAN CORPUSCULAR HEMOGLOBIN 27.7 pg (29.0-33.0); MEAN CORPUSCULAR HGB CONC 30.6 g/dl (32.0-37.0); MEAN CORPUSCULAR VOLUME 90.4 fl (82.0-101.0); MEAN PLATELET VOLUME 9.7 fl (7.4-10.4); MONOCYTE # 0.5 10^3/ul (0.3-0.9); MONOCYTES % 4.8 % (0.0-11.0); NEUTROPHIL # 5.7 10^3/ul (1.6-7.5); NEUTROPHILS % 60.9 % (39.0-77.0); PLATELET COUNT 381 10^3/UL (140-415); RED BLOOD COUNT 2.71 10^6/ul (4.20-5.40); RED CELL DISTRIBUTION WIDTH 13.3 % (11.5-14.5)
[2017-10-01 06:19] LABS: WHITE BLOOD COUNT 9.4 10^3/ul (4.8-10.8)
[2017-10-01 07:07] LABS: ANION GAP 7 (8-16); BLOOD UREA NITROGEN 30 mg/dl (7-20); CALCIUM 8.5 mg/dl (8.4-10.2); CARBON DIOXIDE 28 mmol/L (21-31); CHLORIDE 107 mmol/L (97-110); CREATININE 1.37 mg/dl (0.44-1.00); GLUCOSE 112 mg/dl (70-220); PHOSPHORUS 4.9 mg/dl (2.5-4.9); POTASSIUM 5.4 mmol/L (3.5-5.1); SODIUM 137 mmol/L (135-144)
[2017-10-01] MEDS: INSULIN ASPART [NOVOLOG] 3 ML PEN SC ×7 (08:15→21:00)
[2017-10-01] MEDS: FAMOTIDINE 20 MG TAB PO ×2 (08:53→21:16)
[2017-10-01] MEDS: CITALOPRAM 20 MG TAB PO (08:53)
[2017-10-01] MEDS: CHLORHEXIDINE GLUCONATE 15 ML UD CUP MT ×2 (08:53→21:16)
[2017-10-01] MEDS: NICOTINE (7 MG/24 HR) PATCH TRANSDERM (08:53)
[2017-10-01] MEDS: CEFEPIME 1GM/50 ML (PMX) 50 ML IVPB ×2 (08:53→21:28)
[2017-10-01] MEDS: GABAPENTIN 300 MG CAP PO ×2 (08:53→21:16)
[2017-10-01] MEDS: ZYVOX 600 MG TAB PO ×2 (09:09→21:16)
[2017-10-01] MEDS ORDERED: HYDROCODONE/APAP (10/325) TAB PO (09:30)
[2017-10-01] MEDS ORDERED: HYDROCODONE/APAP (5/325) TAB PO (09:30)
[2017-10-01] MEDS: NA POLYST SULFON 15 GM/60 ML BTL PO (10:30)
[2017-10-01] MEDS: morphine (ER) 15 MG TAB PO ×2 (10:31→21:15)
[2017-10-01] MEDS: morphine 2 MG INJ IV (12:40)
[2017-10-01] MEDS: INSULIN GLARGINE [LANtus] 3 ML PEN SC (21:21)
[2017-10-01] MEDS: HYDROmorphONE 1 MG/ML SYG IV (22:48)
[2017-10-02] MEDS: ACCU-CHEK XX (02:00)
[2017-10-02 06:59] LABS: ANION GAP 10 (8-16); BLOOD UREA NITROGEN 29 mg/dl (7-20); CALCIUM 8.4 mg/dl (8.4-10.2); CARBON DIOXIDE 29 mmol/L (21-31); CHLORIDE 105 mmol/L (97-110); CREATININE 1.52 mg/dl (0.44-1.00); GLUCOSE 101 mg/dl (70-220); PHOSPHORUS 5.9 mg/dl (2.5-4.9); POTASSIUM 4.8 mmol/L (3.5-5.1); SODIUM 139 mmol/L (135-144)
[2017-10-02] MEDS: INSULIN ASPART [NOVOLOG] 3 ML PEN SC ×7 (08:02→20:40)
[2017-10-02] MEDS: CITALOPRAM 20 MG TAB PO (08:03)
[2017-10-02] MEDS: CHLORHEXIDINE GLUCONATE 15 ML UD CUP MT ×2 (08:03→20:36)
[2017-10-02] MEDS: FAMOTIDINE 20 MG TAB PO ×2 (08:03→20:37)
[2017-10-02] MEDS: GABAPENTIN 300 MG CAP PO ×2 (08:03→20:36)
[2017-10-02] MEDS: CEFEPIME 1GM/50 ML (PMX) 50 ML IVPB ×2 (08:04→20:39)
[2017-10-02] MEDS: NICOTINE (7 MG/24 HR) PATCH TRANSDERM (08:05)
[2017-10-02] MEDS: LISINOPRIL 5 MG TAB PO (09:00)
[2017-10-02] MEDS: ZYVOX 600 MG TAB PO ×2 (09:25→20:37)
[2017-10-02] MEDS: morphine (ER) 15 MG TAB PO ×2 (09:51→20:38)
[2017-10-02] MEDS: SEVELAMER 400 MG TAB PO ×2 (12:14→17:42)
[2017-10-02] MEDS: morphine LIQ (10 MG/5 ML) CUP PO (15:11)
[2017-10-02 16:08] LABS: IRON 52 ug/dl (35-150)
[2017-10-02 16:18] LABS: % IRON SATURATION 19 % SAT (22-52); TOTAL IRON BINDING CAPACITY 274 ug/dl (241-421)
[2017-10-02] MEDS: INSULIN GLARGINE [LANtus] 3 ML PEN SC (20:41)
[2017-10-03] MEDS: ACCU-CHEK XX (02:00)
[2017-10-03 06:57] LABS: ANION GAP 15 (8-16); BLOOD UREA NITROGEN 33 mg/dl (7-20); CALCIUM 8.9 mg/dl (8.4-10.2); CARBON DIOXIDE 25 mmol/L (21-31); CHLORIDE 102 mmol/L (97-110); CREATININE 1.96 mg/dl (0.44-1.00); GLUCOSE 251 mg/dl (70-220); MAGNESIUM 2.1 mg/dl (1.7-2.5); PHOSPHORUS 8.2 mg/dl (2.5-4.9); SODIUM 136 mmol/L (135-144)
[2017-10-03] MEDS: INSULIN ASPART [NOVOLOG] 3 ML PEN SC ×8 (06:57→21:00)
[2017-10-03 07:23] LABS: POTASSIUM 6.2 mmol/L (3.5-5.1)
[2017-10-03] MEDS: SEVELAMER 400 MG TAB PO ×3 (08:15→17:46)
[2017-10-03] MEDS: NA POLYST SULFON 15 GM/60 ML BTL PO (08:17)
[2017-10-03] MEDS ORDERED: NALOXONE (0.4 MG/ML) INJ (08:45)
[2017-10-03 08:46] LABS: GLUCOSE 248 mg/dl (70-220)
[2017-10-03] MEDS: NALOXONE (0.4 MG/ML) INJ IV ×2 (08:47→12:28)
[2017-10-03] MEDS: ONDANSETRON 4 MG INJ IV (08:54)
[2017-10-03] MEDS: CITALOPRAM 20 MG TAB PO (09:00)
[2017-10-03] MEDS: GABAPENTIN 300 MG CAP PO (09:00)
[2017-10-03] MEDS: ZYVOX 600 MG TAB PO (09:00)
[2017-10-03] MEDS: FAMOTIDINE 20 MG TAB PO (09:00)
[2017-10-03] MEDS ORDERED: SOD CHLORIDE 0.9% 1,000 ML IV (09:00)
[2017-10-03] MEDS: CHLORHEXIDINE GLUCONATE 15 ML UD CUP MT (09:00)
[2017-10-03] MEDS: DEXTROSE 5%-0.45% NACL 1,000 ML IV ×2 (09:30→23:56)
[2017-10-03] MEDS: CALCIUM GLUCONATE 10% 1 GM in DEXTROSE 5% 100 ML IVPB (09:54)
[2017-10-03] MEDS: NICOTINE (7 MG/24 HR) PATCH TRANSDERM (09:57)
[2017-10-03 10:08] LABS: ADD MAN DIFF? NO
[2017-10-03 10:16] LABS: WHITE BLOOD COUNT 17.2 10^3/ul (4.8-10.8)
[2017-10-03 10:16] LABS: BASOPHILS % 0.2 % (0.0-2.0); HEMATOCRIT 28.2 % (37.0-47.0); HEMOGLOBIN 8.7 g/dl (12.0-16.0); LYMPHOCYTES % 5.9 % (15.0-51.0); MEAN CORPUSCULAR HEMOGLOBIN 27.9 pg (29.0-33.0); MEAN CORPUSCULAR HGB CONC 30.9 g/dl (32.0-37.0); MEAN CORPUSCULAR VOLUME 90.4 fl (82.0-101.0); MEAN PLATELET VOLUME 10.6 fl (7.4-10.4); MONOCYTE # 0.5 10^3/ul (0.3-0.9); MONOCYTES % 2.6 % (0.0-11.0); NEUTROPHIL # 15.7 10^3/ul (1.6-7.5); NEUTROPHILS % 91.1 % (39.0-77.0); PLATELET COUNT 352 10^3/UL (140-415); RED BLOOD COUNT 3.12 10^6/ul (4.20-5.40); RED CELL DISTRIBUTION WIDTH 13.7 % (11.5-14.5)
[2017-10-03 10:35] LABS: ANION GAP 14 (8-16); BLOOD UREA NITROGEN 37 mg/dl (7-20); CALCIUM 9.1 mg/dl (8.4-10.2); CARBON DIOXIDE 28 mmol/L (21-31); CHLORIDE 102 mmol/L (97-110); CREATININE 1.79 mg/dl (0.44-1.00); GLUCOSE 148 mg/dl (70-220); POTASSIUM 4.7 mmol/L (3.5-5.1); SODIUM 139 mmol/L (135-144)
[2017-10-03] MEDS: CEFEPIME 1GM/50 ML (PMX) 50 ML IVPB (10:59)
[2017-10-03 12:01] LABS: ADD UMIC YES; UR AMORPHOUS CRYSTAL FEW /HPF (NONE SEEN); UR ASCORBIC ACID NEGATIVE (NEGATIVE); UR BACTERIA FEW /HPF (NONE SEEN); UR BILIRUBIN (Dip) NEGATIVE (NEGATIVE); UR BLOOD (Dip) NEGATIVE (NEGATIVE); UR CLARITY SLIGHTLY CLOUDY (CLEAR); UR COLOR YELLOW (YELLOW); UR GLUCOSE (Dip) 3+ mg/dL (NEGATIVE); UR KETONES (Dip) NEGATIVE (NEGATIVE); UR LEUKOCYTE ESTERASE (Dip) NEGATIVE Leu/ul (NEGATIVE); UR NITRITE (Dip) NEGATIVE (NEGATIVE); UR RBC 1 /HPF (0-5); UR SPECIFIC GRAVITY (Dip) 1.009 (1.003-1.030); UR TOTAL PROTEIN (Dip) 3+ mg/dl (NEGATIVE); UR UROBILINOGEN (Dip) NEGATIVE (NEGATIVE); UR WBC 2 /HPF (0-5)
[2017-10-03 13:50] LABS: ANION GAP 11 (8-16); BLOOD UREA NITROGEN 35 mg/dl (7-20); CALCIUM 9.2 mg/dl (8.4-10.2); CARBON DIOXIDE 29 mmol/L (21-31); CHLORIDE 104 mmol/L (97-110); CREATININE 1.78 mg/dl (0.44-1.00); GLUCOSE 58 mg/dl (70-220); POTASSIUM 4.6 mmol/L (3.5-5.1); SODIUM 139 mmol/L (135-144)
[2017-10-03] MEDS: SOD CHLORIDE 0.9% IVPB (17:46)
[2017-10-03] MEDS: DAPTOMYCIN IVPB (17:46)
[2017-10-03 18:38] LABS: LACTIC ACID 1.7 mmol/L (0.5-2.0)
[2017-10-03] MEDS: DEXTROSE 50% 50 ML SYRINGE IV ×2 (20:32→21:11)
[2017-10-03] MEDS: GLUCOSE GEL 15 GRAM TUBE PO (20:48)
[2017-10-03 21:52] LABS: GLUCOSE 155 mg/dl (70-220)
[2017-10-04] MEDS: ACCU-CHEK XX (02:00)
[2017-10-04] MEDS: DEXTROSE 5%-0.45% NACL 1,000 ML IV ×2 (06:20→12:42)
[2017-10-04 06:21] LABS: ABNORMAL IP MESSAGE 1; HEMATOCRIT 24.4 % (37.0-47.0); HEMOGLOBIN 7.5 g/dl (12.0-16.0); MEAN CORPUSCULAR HEMOGLOBIN 27.3 pg (29.0-33.0); MEAN CORPUSCULAR HGB CONC 30.7 g/dl (32.0-37.0); MEAN CORPUSCULAR VOLUME 88.7 fl (82.0-101.0); MEAN PLATELET VOLUME 10.1 fl (7.4-10.4); PLATELET COUNT 397 10^3/UL (140-415); RED BLOOD COUNT 2.75 10^6/ul (4.20-5.40); RED CELL DISTRIBUTION WIDTH 13.7 % (11.5-14.5)
[2017-10-04 06:21] LABS: WHITE BLOOD COUNT 31.8 10^3/ul (4.8-10.8)
[2017-10-04 06:38] LABS: CREATINE KINASE 26 IU/L (23-200)
[2017-10-04 06:40] LABS: POSITIVE DIFF @See below
[2017-10-04 06:41] LABS: ADD MAN DIFF? YES
[2017-10-04 06:44] LABS: ALBUMIN 2.6 g/dl (3.3-4.9); ANION GAP 10 (8-16); BLOOD UREA NITROGEN 28 mg/dl (7-20); CALCIUM 8.5 mg/dl (8.4-10.2); CARBON DIOXIDE 29 mmol/L (21-31); CHLORIDE 102 mmol/L (97-110); GLUCOSE 227 mg/dl (70-220); PHOSPHORUS 5.2 mg/dl (2.5-4.9); POTASSIUM 4.4 mmol/L (3.5-5.1); SODIUM 137 mmol/L (135-144)
[2017-10-04] MEDS: FAMOTIDINE 20 MG TAB PO ×3 (08:48→21:16)
[2017-10-04] MEDS: GABAPENTIN 300 MG CAP PO ×3 (08:48→21:16)
[2017-10-04] MEDS: CITALOPRAM 20 MG TAB PO (08:48)
[2017-10-04] MEDS: NICOTINE (7 MG/24 HR) PATCH TRANSDERM (08:50)
[2017-10-04] MEDS: CHLORHEXIDINE GLUCONATE 15 ML UD CUP MT ×3 (08:51→15:49)
[2017-10-04] MEDS: CEFEPIME 1GM/50 ML (PMX) 50 ML IVPB ×2 (08:51)
[2017-10-04] MEDS: SEVELAMER 400 MG TAB PO ×3 (08:59→17:48)
[2017-10-04 09:42] LABS: BAND NEUTROPHILS #M 1.2 10^3/ul (0.0-0.6); BAND NEUTROPHILS % (M) 4 % (0-4); EOSINOPHILS % (M) 1 % (0-7); LYMPHOCYTES #M 1.5 10^3/ul (0.8-2.9); LYMPHOCYTES % (M) 5 % (15-51); MONOCYTE #M 1.2 10^3/ul (0.3-0.9); MONOCYTES % (M) 4 % (0-11); PLATELET ESTIMATE NORMAL; POLYCHROMASIA 1+ (0-0); SEG NEUT #M 27.7 10^3/ul (1.7-7.5); SEGMENTED NEUTROPHILS (M) % 86 % (39-77); SMUDGE%M 4 % (0-0)
[2017-10-04] MEDS: INSULIN ASPART [NOVOLOG] 3 ML PEN SC ×7 (09:42→21:00)
[2017-10-04] MEDS: SOD CHLORIDE 0.9% IVPB (15:50)
[2017-10-04] MEDS: metroNIDAZOLE 250 MG TAB PO ×2 (15:50→17:47)
[2017-10-04] MEDS: DAPTOMYCIN IVPB (15:50)
[2017-10-04] MEDS: HYDROmorphONE 1 MG/ML SYG IV (21:28)
[2017-10-05] MEDS: ACCU-CHEK XX (02:00)
[2017-10-05] MEDS: metroNIDAZOLE 250 MG TAB PO ×5 (06:17→23:19)
[2017-10-05 07:08] LABS: ADD MAN DIFF? NO
[2017-10-05 07:10] LABS: WHITE BLOOD COUNT 22.1 10^3/ul (4.8-10.8)
[2017-10-05 07:10] LABS: BASOPHILS % 0.2 % (0.0-2.0); EOSINOPHILS # 0.1 10^3/ul (0.0-0.5); EOSINOPHILS % 0.4 % (0.0-7.0); HEMATOCRIT 22.9 % (37.0-47.0); LYMPHOCYTES # 2.1 10^3/ul (0.8-2.9); LYMPHOCYTES % 9.6 % (15.0-51.0); MEAN CORPUSCULAR HEMOGLOBIN 27.2 pg (29.0-33.0); MEAN CORPUSCULAR HGB CONC 30.6 g/dl (32.0-37.0); MEAN CORPUSCULAR VOLUME 89.1 fl (82.0-101.0); MEAN PLATELET VOLUME 10.4 fl (7.4-10.4); MONOCYTE # 0.7 10^3/ul (0.3-0.9); MONOCYTES % 3.3 % (0.0-11.0); PLATELET COUNT 369 10^3/UL (140-415); RED BLOOD COUNT 2.57 10^6/ul (4.20-5.40); RED CELL DISTRIBUTION WIDTH 14.1 % (11.5-14.5)
[2017-10-05 07:28] LABS: ALBUMIN 2.9 g/dl (3.3-4.9); ANION GAP 12 (8-16); BLOOD UREA NITROGEN 21 mg/dl (7-20); CALCIUM 8.7 mg/dl (8.4-10.2); CARBON DIOXIDE 27 mmol/L (21-31); CHLORIDE 103 mmol/L (97-110); CREATININE 1.29 mg/dl (0.44-1.00); GLUCOSE 192 mg/dl (70-220); PHOSPHORUS 3.9 mg/dl (2.5-4.9); POTASSIUM 4.5 mmol/L (3.5-5.1); SODIUM 137 mmol/L (135-144)
[2017-10-05] MEDS: FAMOTIDINE 20 MG TAB PO ×2 (08:29→20:24)
[2017-10-05] MEDS: CITALOPRAM 20 MG TAB PO (08:29)
[2017-10-05] MEDS: NICOTINE (7 MG/24 HR) PATCH TRANSDERM (08:29)
[2017-10-05] MEDS: GABAPENTIN 300 MG CAP PO ×2 (08:29→20:24)
[2017-10-05] MEDS: SEVELAMER 400 MG TAB PO ×3 (08:29→17:52)
[2017-10-05] MEDS: INSULIN ASPART [NOVOLOG] 3 ML PEN SC ×7 (08:32→20:24)
[2017-10-05] MEDS: CHLORHEXIDINE GLUCONATE 15 ML UD CUP MT ×2 (09:00→20:24)
[2017-10-05] MEDS: LORAZEPAM 2 MG INJ IV (10:44)
[2017-10-05] MEDS: SOD CHLORIDE 0.9% IVPB (15:40)
[2017-10-05] MEDS: DAPTOMYCIN IVPB (15:40)
[2017-10-05] MEDS: ACETAMINOPHEN 325 MG TAB PO (23:19)
[2017-10-06] MEDS: ACCU-CHEK XX (02:00)
[2017-10-06] MEDS: metroNIDAZOLE 250 MG TAB PO ×3 (05:51→17:56)
[2017-10-06 06:17] LABS: ADD MAN DIFF? NO
[2017-10-06 06:26] LABS: WHITE BLOOD COUNT 15.1 10^3/ul (4.8-10.8)
[2017-10-06 06:26] LABS: BASOPHILS % 0.2 % (0.0-2.0); EOSINOPHILS # 0.2 10^3/ul (0.0-0.5); EOSINOPHILS % 1.3 % (0.0-7.0); HEMATOCRIT 24.7 % (37.0-47.0); HEMOGLOBIN 7.4 g/dl (12.0-16.0); LYMPHOCYTES # 2.6 10^3/ul (0.8-2.9); LYMPHOCYTES % 17.1 % (15.0-51.0); MEAN CORPUSCULAR HEMOGLOBIN 26.8 pg (29.0-33.0); MEAN CORPUSCULAR VOLUME 89.5 fl (82.0-101.0); MEAN PLATELET VOLUME 10.2 fl (7.4-10.4); MONOCYTE # 0.7 10^3/ul (0.3-0.9); MONOCYTES % 4.9 % (0.0-11.0); NEUTROPHIL # 11.5 10^3/ul (1.6-7.5); PLATELET COUNT 363 10^3/UL (140-415); RED BLOOD COUNT 2.76 10^6/ul (4.20-5.40)
[2017-10-06 06:49] LABS: ALBUMIN 2.8 g/dl (3.3-4.9); ANION GAP 9 (8-16); BLOOD UREA NITROGEN 21 mg/dl (7-20); CALCIUM 8.9 mg/dl (8.4-10.2); CARBON DIOXIDE 32 mmol/L (21-31); CHLORIDE 102 mmol/L (97-110); CREATININE 1.42 mg/dl (0.44-1.00); GLUCOSE 228 mg/dl (70-220); POTASSIUM 4.1 mmol/L (3.5-5.1); SODIUM 139 mmol/L (135-144)
[2017-10-06] MEDS: CITALOPRAM 20 MG TAB PO (08:39)
[2017-10-06] MEDS: NICOTINE (7 MG/24 HR) PATCH TRANSDERM (08:39)
[2017-10-06] MEDS: GABAPENTIN 300 MG CAP PO ×2 (08:39→21:18)
[2017-10-06] MEDS: SEVELAMER 400 MG TAB PO ×3 (08:39→17:56)
[2017-10-06] MEDS: FAMOTIDINE 20 MG TAB PO ×2 (08:39→21:18)
[2017-10-06] MEDS: CHLORHEXIDINE GLUCONATE 15 ML UD CUP MT ×2 (08:40→21:18)
[2017-10-06] MEDS: INSULIN ASPART [NOVOLOG] 3 ML PEN SC ×7 (08:50→21:36)
[2017-10-06] MEDS: CLINDAMYCIN 150 MG CAP PO ×2 (14:58→21:18)
[2017-10-06] MEDS: LORAZEPAM 2 MG INJ IV (22:47)
[2017-10-07] MEDS: metroNIDAZOLE 250 MG TAB PO ×4 (00:11→18:09)
[2017-10-07] MEDS: ACCU-CHEK XX (02:50)
[2017-10-07] MEDS: CLINDAMYCIN 150 MG CAP PO ×3 (06:19→21:42)
[2017-10-07] MEDS: ACETAMINOPHEN 325 MG TAB PO (06:19)
[2017-10-07] MEDS: INSULIN ASPART [NOVOLOG] 3 ML PEN SC ×7 (08:01→20:28)
[2017-10-07 08:38] LABS: ADD MAN DIFF? NO
[2017-10-07 08:49] LABS: ABNORMAL IP MESSAGE 1; BASOPHILS % 0.2 % (0.0-2.0); EOSINOPHILS # 0.2 10^3/ul (0.0-0.5); EOSINOPHILS % 1.8 % (0.0-7.0); HEMATOCRIT 20.8 % (37.0-47.0); LYMPHOCYTES # 2.2 10^3/ul (0.8-2.9); LYMPHOCYTES % 19.6 % (15.0-51.0); MEAN CORPUSCULAR HEMOGLOBIN 27.6 pg (29.0-33.0); MEAN CORPUSCULAR HGB CONC 30.8 g/dl (32.0-37.0); MEAN CORPUSCULAR VOLUME 89.7 fl (82.0-101.0); MEAN PLATELET VOLUME 10.8 fl (7.4-10.4); MONOCYTES % 8.9 % (0.0-11.0); NEUTROPHIL # 7.8 10^3/ul (1.6-7.5); NEUTROPHILS % 69.2 % (39.0-77.0); NUCLEATED RED BLOOD CELLS% 0.2 /100WBC (0.0-0.0); PLATELET COUNT 311 10^3/UL (140-415); RED BLOOD COUNT 2.32 10^6/ul (4.20-5.40); RED CELL DISTRIBUTION WIDTH 14.2 % (11.5-14.5)
[2017-10-07 08:49] LABS: WHITE BLOOD COUNT 11.3 10^3/ul (4.8-10.8)
[2017-10-07 09:02] LABS: HEMOGLOBIN 6.4 g/dl (12.0-16.0)
[2017-10-07] MEDS: CHLORHEXIDINE GLUCONATE 15 ML UD CUP MT ×2 (09:08→20:28)
[2017-10-07] MEDS: NICOTINE (7 MG/24 HR) PATCH TRANSDERM (09:08)
[2017-10-07] MEDS: CITALOPRAM 20 MG TAB PO (09:09)
[2017-10-07] MEDS: GABAPENTIN 300 MG CAP PO ×2 (09:09→20:27)
[2017-10-07] MEDS: FAMOTIDINE 20 MG TAB PO ×2 (09:09→20:28)
[2017-10-07] MEDS: SEVELAMER 400 MG TAB PO ×3 (09:09→18:03)
[2017-10-07 09:13] LABS: ALBUMIN 2.5 g/dl (3.3-4.9); ANION GAP 9 (8-16); BLOOD UREA NITROGEN 20 mg/dl (7-20); CALCIUM 8.2 mg/dl (8.4-10.2); CARBON DIOXIDE 29 mmol/L (21-31); CHLORIDE 102 mmol/L (97-110); GLUCOSE 216 mg/dl (70-220); POTASSIUM 4.3 mmol/L (3.5-5.1); SODIUM 136 mmol/L (135-144)
[2017-10-07 11:16] LABS: HEMATOCRIT 21.7 % (37.0-47.0)
[2017-10-07 11:36] LABS: HEMOGLOBIN 6.7 g/dl (12.0-16.0)
[2017-10-07] MEDS ORDERED: SOD CHLORIDE 0.9% 250 ML IV* (11:37)
[2017-10-07 14:53] LABS: IMMEDIATE SPIN CROSSMATCH 1 2
[2017-10-07] MEDS: LORAZEPAM 2 MG INJ IV ×2 (15:05→21:42)
[2017-10-07] MEDS: traMADol 50 MG TAB PO (20:28)
[2017-10-08] MEDS: metroNIDAZOLE 250 MG TAB PO ×3 (00:07→12:01)
[2017-10-08] MEDS: ACCU-CHEK XX (02:00)
[2017-10-08] MEDS: CLINDAMYCIN 150 MG CAP PO ×2 (05:53→14:32)
[2017-10-08] MEDS: SEVELAMER 400 MG TAB PO ×2 (08:16→12:01)
[2017-10-08] MEDS: INSULIN ASPART [NOVOLOG] 3 ML PEN SC ×4 (08:22→12:13)
[2017-10-08] MEDS: CHLORHEXIDINE GLUCONATE 15 ML UD CUP MT (08:27)
[2017-10-08] MEDS: FAMOTIDINE 20 MG TAB PO (08:34)
[2017-10-08] MEDS: NICOTINE (7 MG/24 HR) PATCH TRANSDERM (08:35)
[2017-10-08] MEDS: CITALOPRAM 20 MG TAB PO (08:35)
[2017-10-08] MEDS: GABAPENTIN 300 MG CAP PO (08:35)
[2017-10-08 08:42] LABS: ADD MAN DIFF? NO
[2017-10-08 08:45] LABS: BASOPHILS % 0.3 % (0.0-2.0); EOSINOPHILS # 0.4 10^3/ul (0.0-0.5); EOSINOPHILS % 3.2 % (0.0-7.0); HEMATOCRIT 29.3 % (37.0-47.0); HEMOGLOBIN 9.4 g/dl (12.0-16.0); LYMPHOCYTES # 2.3 10^3/ul (0.8-2.9); LYMPHOCYTES % 20.3 % (15.0-51.0); MEAN CORPUSCULAR HEMOGLOBIN 28.1 pg (29.0-33.0); MEAN CORPUSCULAR HGB CONC 32.1 g/dl (32.0-37.0); MEAN CORPUSCULAR VOLUME 87.7 fl (82.0-101.0); MEAN PLATELET VOLUME 10.2 fl (7.4-10.4); MONOCYTE # 1.2 10^3/ul (0.3-0.9); MONOCYTES % 10.5 % (0.0-11.0); NEUTROPHIL # 7.4 10^3/ul (1.6-7.5); NEUTROPHILS % 65.3 % (39.0-77.0); PLATELET COUNT 320 10^3/UL (140-415); RED BLOOD COUNT 3.34 10^6/ul (4.20-5.40)
[2017-10-08 08:45] LABS: WHITE BLOOD COUNT 11.3 10^3/ul (4.8-10.8)
[2017-10-08 09:15] LABS: ANION GAP 13 (8-16); BLOOD UREA NITROGEN 21 mg/dl (7-20); CALCIUM 8.3 mg/dl (8.4-10.2); CARBON DIOXIDE 27 mmol/L (21-31); CHLORIDE 102 mmol/L (97-110); CREATININE 1.16 mg/dl (0.44-1.00); GLUCOSE 187 mg/dl (70-220); PHOSPHORUS 4.3 mg/dl (2.5-4.9); POTASSIUM 4.6 mmol/L (3.5-5.1); SODIUM 137 mmol/L (135-144)
[2017-10-08] MEDS: EPOETIN ALFA (NESRD) 3,000 UNITS/ML VIAL SC (10:31)
[2017-10-08] MEDS: traMADol 50 MG TAB PO (13:34)
== END 2017-10-08 16:20 | disposition home or self-care (01) | DRG 854 ==
LOC: TEL 10-03 11:40 → E/R 12:33 → MS2 14:47
PROC: 0Y6X0Z0 Detachment at Right 5th Toe, Complete, Open Approach (ICD-10-PCS; principal; 2017-09-23 10:30)
PROC: 0JDQ0ZZ Extraction of Right Foot Subcutaneous Tissue and Fascia, Open Approach (ICD-10-PCS; 2017-09-23 11:15)
PROC: 0HQMXZZ Repair Right Foot Skin, External Approach (ICD-10-PCS; 2017-09-23 11:15)
PROC: 30233N1 Transfusion of Nonautologous Red Blood Cells into Peripheral Vein, Percutaneous Approach (ICD-10-PCS; 2017-09-23 11:15)
DX: A41.9 Sepsis, unspecified organism (principal); N17.9 Acute kidney failure, unspecified; I96 Gangrene, not elsewhere classified; E11.21 Type 2 diabetes mellitus with diabetic nephropathy; M00.071 Staphylococcal arthritis, right ankle and foot; N18.3 Chronic kidney disease, stage 3 (moderate); L03.115 Cellulitis of right lower limb; E87.1 Hypo-osmolality and hyponatremia; E11.52 Type 2 diabetes mellitus with diabetic peripheral angiopathy with gangrene; N39.0 Urinary tract infection, site not specified; M86.671 Other chronic osteomyelitis, right ankle and foot; M00.271 Other streptococcal arthritis, right ankle and foot; E11.22 Type 2 diabetes mellitus with diabetic chronic kidney disease; E11.621 Type 2 diabetes mellitus with foot ulcer; L97.519 Non-pressure chronic ulcer of other part of right foot with unspecified severity; E11.65 Type 2 diabetes mellitus with hyperglycemia; D63.8 Anemia in other chronic diseases classified elsewhere; B95.1 Streptococcus, group B, as the cause of diseases classified elsewhere; E87.5 Hyperkalemia; R41.82 Altered mental status, unspecified; F17.210 Nicotine dependence, cigarettes, uncomplicated; Z91.81 History of falling; Z79.4 Long term (current) use of insulin
CPT/HCPCS: 36415; 36430; 71045; 73610-RT; 73630; 73722; 80048; 80053; 80069; 80202; 81001; 81003; 82043; 82550; 82565; 82728; 82947; 82962; 83036; 83540; 83605; 83735; 84100; 84132; 84155; 84300; 84484; 84520; 85014; 85018; 85025; 85610; 85730; 86704; 86709; 86803; 86850; 86900; 86901; 86920; 87040; 87070; 87081; 87086; 87102; 87116; 87206; 87340; 88305; 88311; 93005; 96372; 96374; 96375; 97110; 97162; 97530; 99291-25

== ENCOUNTER 2018-01-27 02:42 | Inpatient (IN) | payer OTHER ==
[2018-01-27] MEDS ORDERED: NITROGLYCERIN (SL) 0.4 MG TAB SL (05:30)
[2018-01-27] MEDS: morphine 2 MG INJ IV (06:02)
[2018-01-27] MEDS ORDERED: ALBUTEROL/IPRATROPIUM (NEB) 3 ML AMP HHN (06:30)
[2018-01-27] MEDS ORDERED: NACL 0.9% 3 ML SYG IV (06:30)
[2018-01-27] MEDS ORDERED: ONDANSETRON 4 MG INJ IV (06:30)
[2018-01-27] MEDS: ONDANSETRON 4 MG INJ IV ×2 (06:42→09:07)
[2018-01-27] MEDS ORDERED: GLUCAGON 1 MG INJ IM (07:00)
[2018-01-27] MEDS ORDERED: GLUCOSE GEL 15 GRAM TUBE BUCCAL (07:00)
[2018-01-27] MEDS ORDERED: DEXTROSE 50% 50 ML SYRINGE IV (07:00)
[2018-01-27] MEDS ORDERED: GLUCOSE GEL 15 GRAM TUBE PO ×2 (07:00)
[2018-01-27] MEDS: morphine LIQ (10 MG/5 ML) CUP PO ×2 (08:47→21:08)
[2018-01-27] MEDS: HEPARIN 5,000 UNIT/0.5 ML VIAL SC ×2 (08:50→20:46)
[2018-01-27] MEDS: morphine (ER) 15 MG TAB PO ×3 (08:51→20:47)
[2018-01-27] MEDS: METOPROLOL 25 MG TAB PO ×2 (08:56→20:36)
[2018-01-27] MEDS: BACLOFEN 10 MG TAB PO ×3 (08:56→20:36)
[2018-01-27] MEDS: GABAPENTIN 300 MG CAP PO ×3 (08:56→20:36)
[2018-01-27] MEDS: CITALOPRAM 20 MG TAB PO (08:56)
[2018-01-27] MEDS: INSULIN ASPART [NOVOLOG] 3 ML PEN SC ×6 (09:00→20:46)
[2018-01-27] MEDS: DEXTROSE 50% 50 ML SYRINGE IV (15:13)
[2018-01-27 16:08] LABS: ADD MAN DIFF? NO
[2018-01-27 16:09] LABS: BASOPHILS % 0.4 % (0.0-2.0); EOSINOPHILS # 0.1 10^3/ul (0.0-0.5); EOSINOPHILS % 1.4 % (0.0-7.0); LYMPHOCYTES # 2.9 10^3/ul (0.8-2.9); LYMPHOCYTES % 34.1 % (15.0-51.0); MEAN CORPUSCULAR HEMOGLOBIN 28.2 pg (29.0-33.0); MEAN CORPUSCULAR HGB CONC 31.3 g/dl (32.0-37.0); MEAN CORPUSCULAR VOLUME 90.4 fl (82.0-101.0); MEAN PLATELET VOLUME 10.8 fl (7.4-10.4); MONOCYTE # 0.5 10^3/ul (0.3-0.9); MONOCYTES % 5.7 % (0.0-11.0); NEUTROPHIL # 4.9 10^3/ul (1.6-7.5); NEUTROPHILS % 58.2 % (39.0-77.0); PLATELET COUNT 283 10^3/UL (140-415); RED BLOOD COUNT 3.54 10^6/ul (4.20-5.40); RED CELL DISTRIBUTION WIDTH 13.9 % (11.5-14.5)
[2018-01-27 16:09] LABS: WHITE BLOOD COUNT 8.4 10^3/ul (4.8-10.8)
[2018-01-27 16:26] LABS: GLUCOSE 137 mg/dl (70-220)
[2018-01-27 16:26] LABS: ANION GAP 11 (8-16); BLOOD UREA NITROGEN 26 mg/dl (7-20); CARBON DIOXIDE 20 mmol/L (21-31); CHLORIDE 112 mmol/L (97-110); CREATININE 1.41 mg/dl (0.44-1.00); GLUCOSE 138 mg/dl (70-220); POTASSIUM 4.5 mmol/L (3.5-5.1); SODIUM 138 mmol/L (135-144)
[2018-01-27 16:38] LABS: TROPONIN-I 0.013 ng/ml (0.000-0.120)
[2018-01-27] MEDS ORDERED: INSULIN GLARGINE [LANtus] 3 ML PEN SC (20:00)
[2018-01-28] MEDS: ACCU-CHEK XX (01:54)
[2018-01-28] MEDS: GABAPENTIN 300 MG CAP PO ×3 (08:23→22:32)
[2018-01-28] MEDS: CITALOPRAM 20 MG TAB PO (08:23)
[2018-01-28] MEDS: morphine (ER) 15 MG TAB PO ×2 (08:23→21:00)
[2018-01-28] MEDS: BACLOFEN 10 MG TAB PO ×3 (08:24→22:33)
[2018-01-28] MEDS: INSULIN ASPART [NOVOLOG] 3 ML PEN SC ×4 (08:38→21:00)
[2018-01-28] MEDS: HEPARIN 5,000 UNIT/0.5 ML VIAL SC ×2 (08:38→21:32)
[2018-01-28] MEDS: ONDANSETRON 4 MG INJ IV (08:39)
[2018-01-28] MEDS: METOPROLOL 25 MG TAB PO ×2 (08:39→21:00)
[2018-01-28] MEDS: morphine LIQ (10 MG/5 ML) CUP PO (08:40)
[2018-01-28 09:18] LABS: ADD MAN DIFF? NO
[2018-01-28 09:24] LABS: WHITE BLOOD COUNT 9.4 10^3/ul (4.8-10.8)
[2018-01-28 09:24] LABS: BASOPHILS % 0.2 % (0.0-2.0); EOSINOPHILS # 0.2 10^3/ul (0.0-0.5); EOSINOPHILS % 1.9 % (0.0-7.0); HEMATOCRIT 32.9 % (37.0-47.0); HEMOGLOBIN 10.2 g/dl (12.0-16.0); LYMPHOCYTES # 2.3 10^3/ul (0.8-2.9); LYMPHOCYTES % 24.6 % (15.0-51.0); MEAN CORPUSCULAR HEMOGLOBIN 28.6 pg (29.0-33.0); MEAN CORPUSCULAR VOLUME 92.2 fl (82.0-101.0); MEAN PLATELET VOLUME 11.3 fl (7.4-10.4); MONOCYTE # 0.6 10^3/ul (0.3-0.9); MONOCYTES % 6.2 % (0.0-11.0); NEUTROPHIL # 6.3 10^3/ul (1.6-7.5); NEUTROPHILS % 66.9 % (39.0-77.0); PLATELET COUNT 311 10^3/UL (140-415); RED BLOOD COUNT 3.57 10^6/ul (4.20-5.40)
[2018-01-28 09:44] LABS: ALANINE AMINOTRANSFERASE 17 IU/L (13-69); ALBUMIN 2.6 g/dl (3.3-4.9); ALBUMIN/GLOBULIN RATIO 0.83; ALKALINE PHOSPHATASE 106 IU/L (42-121); ANION GAP 9 (8-16); ASPARTATE AMINO TRANSFERASE 19 IU/L (15-46); BILIRUBIN,INDIRECT 0.2 mg/dl (0-1.1); BILIRUBIN,TOTAL 0.2 mg/dl (0.2-1.3); BLOOD UREA NITROGEN 26 mg/dl (7-20); CARBON DIOXIDE 22 mmol/L (21-31); CHLORIDE 111 mmol/L (97-110); CREATININE 1.96 mg/dl (0.44-1.00); GLUCOSE 263 mg/dl (70-220); MAGNESIUM 1.7 mg/dl (1.7-2.5); POTASSIUM 5.1 mmol/L (3.5-5.1); SODIUM 137 mmol/L (135-144); TOTAL PROTEIN 5.7 g/dl (6.1-8.1)
[2018-01-28 13:36] LABS: CHOL/HDL RATIO 2.5 RATIO; HDL CHOLESTEROL 87 mg/dl (34-82); LDL CHOLESTEROL,CALCULATED 92 mg/dl; TRIGLYCERIDES 219 mg/dl (0-149)
[2018-01-28 13:36] LABS: CHOLESTEROL 223 mg/dl (100-200)
[2018-01-28 13:48] LABS: TROPONIN-I < 0.012 ng/ml (0.000-0.120)
[2018-01-28] MEDS ORDERED: ONDANSETRON 4 MG TAB PO (15:00)
[2018-01-28] MEDS: INSULIN GLARGINE [LANtus] 3 ML PEN SC (21:32)
[2018-01-28] MEDS: ONDANSETRON (ODT) 4 MG TAB ODT (22:03)
[2018-01-29] MEDS: ACCU-CHEK XX (02:00)
[2018-01-29] MEDS: CITALOPRAM 20 MG TAB PO (08:26)
[2018-01-29] MEDS: GABAPENTIN 300 MG CAP PO ×2 (08:26→13:00)
[2018-01-29] MEDS: METOPROLOL 25 MG TAB PO ×2 (08:26→20:50)
[2018-01-29] MEDS: BACLOFEN 10 MG TAB PO ×2 (08:26→13:00)
[2018-01-29] MEDS: morphine (ER) 15 MG TAB PO ×2 (08:26→21:00)
[2018-01-29 08:30] LABS: ANION GAP 9 (8-16); BLOOD UREA NITROGEN 32 mg/dl (7-20); CALCIUM 8.2 mg/dl (8.4-10.2); CARBON DIOXIDE 22 mmol/L (21-31); CHLORIDE 113 mmol/L (97-110); CREATININE 2.14 mg/dl (0.44-1.00); GLUCOSE 151 mg/dl (70-220); SODIUM 138 mmol/L (135-144)
[2018-01-29] MEDS: HEPARIN 5,000 UNIT/0.5 ML VIAL SC ×2 (08:34→20:46)
[2018-01-29] MEDS: INSULIN ASPART [NOVOLOG] 3 ML PEN SC ×4 (08:34→20:53)
[2018-01-29] MEDS: ONDANSETRON 4 MG INJ IV (09:02)
[2018-01-29 10:12] LABS: ADD UMIC YES; UR ASCORBIC ACID NEGATIVE (NEGATIVE); UR BACTERIA MODERATE /HPF (NONE SEEN); UR BILIRUBIN (Dip) NEGATIVE (NEGATIVE); UR BLOOD (Dip) 1+ mg/dL (NEGATIVE); UR CLARITY TURBID (CLEAR); UR COLOR YELLOW (YELLOW); UR GLUCOSE (Dip) 3+ mg/dL (NEGATIVE); UR KETONES (Dip) NEGATIVE (NEGATIVE); UR LEUKOCYTE ESTERASE (Dip) 2+ Leu/ul (NEGATIVE); UR MUCUS FEW /HPF (NONE SEEN); UR NITRITE (Dip) NEGATIVE (NEGATIVE); UR RBC 0 /HPF (0-5); UR SPECIFIC GRAVITY (Dip) 1.009 (1.003-1.030); UR SQUAMOUS EPITHELIAL CELL FEW /HPF (FEW); UR TOTAL PROTEIN (Dip) 3+ mg/dl (NEGATIVE); UR UROBILINOGEN (Dip) NEGATIVE (NEGATIVE); UR WBC > 182 /HPF (0-5)
[2018-01-29 10:47] LABS: AMPHETAMINE/METHAMPHETAMINE Negative (NEGATIVE); BARBITURATES Negative (NEGATIVE); BENZODIAZEPINES Negative (NEGATIVE); CANNABINOIDS Negative (NEGATIVE); COCAINE Negative (NEGATIVE); OPIATES Positive (NEGATIVE)
[2018-01-29] MEDS: SOD CHLORIDE 0.45% 1,000 ML IV ×2 (10:48→20:53)
[2018-01-29] MEDS: NA POLYST SULFON 15 GM/60 ML BTL PO ×2 (10:49→13:34)
[2018-01-29] MEDS: LEVOFLOXACIN 250MG/D5W (PMX) 50 ML IVPB (15:12)
[2018-01-29] MEDS ORDERED: BISACODYL (EC) 5 MG TAB PO (19:00)
[2018-01-29] MEDS ORDERED: BISACODYL 10 MG SUPP PR (20:00)
[2018-01-29] MEDS: INSULIN GLARGINE [LANtus] 3 ML PEN SC (20:52)
[2018-01-30] MEDS: ONDANSETRON 4 MG INJ IV ×2 (00:21→06:44)
[2018-01-30] MEDS: ACCU-CHEK XX (02:00)
[2018-01-30 07:13] LABS: ADD MAN DIFF? NO
[2018-01-30] MEDS: SOD CHLORIDE 0.45% 1,000 ML IV (07:13)
[2018-01-30 07:18] LABS: BASOPHILS % 0.2 % (0.0-2.0); EOSINOPHILS # 0.1 10^3/ul (0.0-0.5); EOSINOPHILS % 1.1 % (0.0-7.0); HEMATOCRIT 32.1 % (37.0-47.0); HEMOGLOBIN 9.9 g/dl (12.0-16.0); LYMPHOCYTES # 1.9 10^3/ul (0.8-2.9); LYMPHOCYTES % 20.1 % (15.0-51.0); MEAN CORPUSCULAR HEMOGLOBIN 28.2 pg (29.0-33.0); MEAN CORPUSCULAR HGB CONC 30.8 g/dl (32.0-37.0); MEAN CORPUSCULAR VOLUME 91.5 fl (82.0-101.0); MONOCYTE # 0.6 10^3/ul (0.3-0.9); MONOCYTES % 6.2 % (0.0-11.0); NEUTROPHIL # 6.7 10^3/ul (1.6-7.5); NEUTROPHILS % 72.1 % (39.0-77.0); PLATELET COUNT 339 10^3/UL (140-415); RED BLOOD COUNT 3.51 10^6/ul (4.20-5.40); RED CELL DISTRIBUTION WIDTH 13.7 % (11.5-14.5)
[2018-01-30 07:18] LABS: WHITE BLOOD COUNT 9.3 10^3/ul (4.8-10.8)
[2018-01-30] MEDS: ACETAMINOPHEN 325 MG TAB PO (07:24)
[2018-01-30 07:45] LABS: ANION GAP 13 (8-16); BLOOD UREA NITROGEN 23 mg/dl (7-20); CALCIUM 8.1 mg/dl (8.4-10.2); CARBON DIOXIDE 24 mmol/L (21-31); CHLORIDE 109 mmol/L (97-110); CREATININE 1.62 mg/dl (0.44-1.00); GLUCOSE 164 mg/dl (70-220); POTASSIUM 4.6 mmol/L (3.5-5.1); SODIUM 141 mmol/L (135-144)
[2018-01-30] MEDS: CITALOPRAM 20 MG TAB PO (08:42)
[2018-01-30] MEDS: METOPROLOL 25 MG TAB PO (08:43)
[2018-01-30] MEDS: morphine (ER) 15 MG TAB PO (08:44)
[2018-01-30] MEDS: INSULIN ASPART [NOVOLOG] 3 ML PEN SC ×2 (08:44→12:05)
[2018-01-30] MEDS: HEPARIN 5,000 UNIT/0.5 ML VIAL SC (08:44)
[2018-01-30] MEDS ORDERED: INSULIN GLARGINE [LANtus] 3 ML PEN SC (20:00)
== END 2018-01-30 13:35 | disposition home or self-care (01) | DRG 683 ==
LOC: TEL 02:42 → MS4 01-28 19:08
PROVIDERS: Internal Medicine
DX: N17.9 Acute kidney failure, unspecified (principal); N39.0 Urinary tract infection, site not specified; I13.0 Hypertensive heart and chronic kidney disease with heart failure and stage 1 through stage 4 chronic kidney disease, or unspecified chronic kidney disease; M86.672 Other chronic osteomyelitis, left ankle and foot; E11.22 Type 2 diabetes mellitus with diabetic chronic kidney disease; E87.5 Hyperkalemia; I50.9 Heart failure, unspecified; R13.10 Dysphagia, unspecified; N18.3 Chronic kidney disease, stage 3 (moderate); B95.1 Streptococcus, group B, as the cause of diseases classified elsewhere; R07.89 Other chest pain; R33.9 Retention of urine, unspecified; Z79.4 Long term (current) use of insulin; Z87.891 Personal history of nicotine dependence
CPT/HCPCS: 71046; 76775; 80048; 80053; 80061; 80307; 81001; 82947; 82962; 83735; 84484; 84703; 85025; 87081; 87086